=== PATIENT | female | born 1955 | race Caucasian/White ===

== ENCOUNTER → 2018-03-19 16:30 | Outpatient (REF) | payer OTHER, SELFPAY | LOC: LAB 16:30 | PROVIDERS: Visit Provider Nurse Practitioner Obstetrics & Gynecology | DX: N39.0 Urinary tract infection, site not specified (principal) | CPT/HCPCS: 87086; 87088; 87186 ==

== ENCOUNTER 2018-12-25 12:28 | Outpatient (CLI) | payer OTHER, SELFPAY ==
[2018-12-25 12:44] VITALS: BMI 24.3
== END 2018-12-25 13:03 | disposition home or self-care (01) ==
PROVIDERS: PCP Family Medicine; Visit Provider Nurse Practitioner Family
DX: Z23 Encounter for immunization (principal)
CPT/HCPCS: G0463; 90471; 90632; 99201

== ENCOUNTER → 2019-02-26 09:10 | Outpatient (CLI) | payer OTHER, SELFPAY ==
--- NOTE | 2019-02-26 09:12 | MM_ITS ---
PROCEDURE: MM DIG SCREENING MAMM BI W/CAD CLINICAL INDICATION: Routine Screening Mammogram 63-year-old but no hormones. No new complaints. Noncontributory family history. COMPARISON: DMDXUR DIG MAMM-DX UNI-RT from 08/06/2013 DMSB DIG MAMM-SCREEN SENAIT from 01/20/2014 DMSB DIG MAMM-SCREEN SENAIT from 02/03/2015 DMSB DIG MAMM-SCREEN SENAIT from 02/13/2016 DMSB DIG MAMM-SCREEN SENAIT W/CAD from 03/11/2017 TECHNIQUE: Standard CC and MLO images were obtained. R2 CAD reviewed. Additional axillary CC view right breast included FINDINGS: [id number] residual breast density. No dominant or new suspicious mass. No suspicious calcifications Right breast. No new areas of significant concern. Right breast again noted a stable asymmetric small focal area of density deep breast unchanged since studies dating back to 2013 Left breast but no significant new findings but IMPRESSION: Stable bilateral mammogram. No significant appearing new findings either breast Bilateral follow-up 1 year recommended BI-RAD Category: 1 Negative FOLLOW-UP: 1YR 1 Year Follow-up (A letter has been sent to the patient regarding results of the study.) Dictated by: Miguel Angel Farris MD 02/27/2019 09:55 Signed by: <Electronically signed by Miguel Angel Farris MD in [place]> 02/27/2019 09:55
== END ==
PROVIDERS: PCP Family Medicine; Visit Provider Nurse Practitioner Obstetrics & Gynecology
DX: Z12.31 Encounter for screening mammogram for malignant neoplasm of breast (principal)
CPT/HCPCS: 77067

== ENCOUNTER → 2019-02-27 08:48 | Outpatient (CLI) | payer OTHER, SELFPAY ==
[2019-02-27 09:05] LABS: Basophils % 0.6 % (0.1-2.0); Eosinophils # 0.2 K/mm3 (0.0-0.4); Eosinophils % 2.8 % (0.1-12.0); Hematocrit 40.3 % (37.0-47.0); Hemoglobin 12.8 g/dL (12.2-16.2); Lymphocytes # 1.9 K/mm3 (0.7-4.5); Lymphocytes % 35.5 % (10-50); Mean Corpuscular HGB Conc 31.7 g/dL (31.8-35.4); Mean Corpuscular Hemoglobin 27.2 pg (27.0-31.2); Mean Corpuscular Volume 85.7 fl (81-99); Mean Platelet Volume 7.7 fl (7.4-10.4); Monocytes # 0.4 K/mm3 (0.1-1.0); Monocytes % 7.7 % (1.7-9.3); Neutrophils # 2.9 K/mm3 (1.8-7.8); Neutrophils % 53.5 % (37.0-80.0); Platelet Count 211 K/mm3 (142-424); Red Blood Count 4.71 M/mm3 (4.20-5.40); Red Cell Distribution Width 12.9 % (11.5-17.5); White Blood Count 5.4 K/mm3 (4.8-10.8)
[2019-02-27 10:33] LABS: Alanine Aminotransferase 23 U/L (12-78); Albumin Level 3.2 gm/dL (3.4-5.0); Albumin/Globulin Ratio 0.9 (1.1-1.8); Alkaline Phosphatase 83 U/L (46-116); Anion Gap 10.7 mEq/L (5-15); Aspartate Amino Transferase 12 U/L (15-37); Bilirubin,Total 0.2 mg/dL (0.2-1.0); Blood Urea Nitrogen 21 mg/dL (7-18); Calcium 8.6 mg/dL (8.5-10.1); Carbon Dioxide 29 mmol/L (21.0-32.0); Chloride 107 mmol/L (98-107); Chol/HDL Ratio 3.9 (1-3.5); Cholesterol 233 mg/dL (140-200); Creatinine,Serum 0.81 mg/dL (0.55-1.02); Estimated Glomerular Filt Rate 71 ml/min (>60); GFR (African American) 86 ML/MIN (>60); Globulin 3.7 gm/dl (1.3-3.2); Glucose 95 mg/dL (74-106); HDL Cholesterol 60 mg/dL (29-89); LDL Cholesterol 162 mg/dL (0-130); Potassium 4.7 mmoL/L (3.5-5.1); Sodium 142 mmol/L (136-145); Total Protein,Serum 6.9 gm/dL (6.4-8.2); Triglycerides 55 mg/dL (30-200); VLDL Cholesterol 11 mg/dL (0-40)
== END ==
PROVIDERS: Visit Provider Nurse Practitioner Obstetrics & Gynecology
DX: Z01.419 Encounter for gynecological examination (general) (routine) without abnormal findings (principal)
CPT/HCPCS: 36415; 80053; 80061; 85025

== ENCOUNTER → 2020-04-22 10:45 | Outpatient (CLI) | payer MEDICARE, SELFPAY ==
--- NOTE | 2020-04-22 10:49 | MM_ITS ---
PROCEDURE: MM DIG SCREENING MAMM BI W/CAD Digital Breast Tomosynthesis Included CLINICAL INDICATION: SCREENING There is no personal or family history of breast cancer. COMPARISON: MG DMSB DIG MAMM-SCREEN SENAIT from 02/13/2016 MG DMSB DIG MAMM-SCREEN SENAIT W/CAD from 03/11/2017 MG MM DIG SCREENING MAMM BI W/CAD from 02/26/2019 TECHNIQUE: Standard CC and MLO images and 3D Tomosynthesis was obtained. R2 CAD reviewed. FINDINGS: Scattered fibroglandular densities are seen throughout both breasts. There is a stable asymmetric density central portion right breast only definitely seen on the MLO view and likely a summation shadow there is no suspicious lesion and no suspicious microcalcifications. IMPRESSION: Fibrofatty parenchyma with no suspicious lesions seen BI-RAD Category: 1 Negative FOLLOW-UP: 1YR 1 Year Follow-up (A letter has been sent to the patient regarding results of the study.) Dictated by: Dr. Cole Raya MD 04/26/2020 19:37 Dr. Cole Raya MD in [place] 04/26/2020 19:37
== END ==
PROVIDERS: PCP Family Medicine; Visit Provider Nurse Practitioner Obstetrics & Gynecology
DX: Z12.31 Encounter for screening mammogram for malignant neoplasm of breast (principal)
CPT/HCPCS: 77063; 77067

== ENCOUNTER → 2020-11-19 08:07 | Outpatient (CLI) | payer MEDICARE, SELFPAY ==
[2020-11-19 08:22] LABS: Basophils # 0.1 K/mm3 (0-0.2); Basophils % 0.9 % (0.1-2.0); Eosinophils # 0.1 K/mm3 (0.0-0.4); Hematocrit 40.5 % (37.0-47.0); Hemoglobin 12.6 g/dL (12.2-16.2); Lymphocytes # 1.6 K/mm3 (0.7-4.5); Lymphocytes % 27.9 % (10-50); Mean Corpuscular HGB Conc 31.1 g/dL (31.8-35.4); Mean Corpuscular Hemoglobin 26.4 pg (27.0-31.2); Mean Platelet Volume 8.2 fl (7.4-10.4); Monocytes # 0.4 K/mm3 (0.1-1.0); Monocytes % 6.7 % (1.7-9.3); Neutrophils # 3.6 K/mm3 (1.8-7.8); Neutrophils % 62.6 % (37.0-80.0); Platelet Count 212 K/mm3 (142-424); Red Blood Count 4.77 M/mm3 (4.20-5.40); Red Cell Distribution Width 12.8 % (11.5-17.5); White Blood Count 5.7 K/mm3 (4.8-10.8)
[2020-11-19 08:37] LABS: Creatinine,Urine Random 90 mg/dL (Not Estab.)
[2020-11-19 08:38] LABS: Microalbumin/Creatinine Ratio 8.4
[2020-11-19 09:00] LABS: Alanine Aminotransferase 16 U/L (12-78); Albumin Level 3.9 g/dl (3.5-5.0); Albumin/Globulin Ratio 1.4 (1.1-1.8); Alkaline Phosphatase 75 U/L (38-126); Anion Gap 6.9 mEq/L (5-15); Aspartate Amino Transferase 20 U/L (14-36); Bilirubin,Total 0.4 mg/dl (0.2-1.3); Blood Urea Nitrogen 16 mg/dl (7-17); Calcium 9.1 mg/dl (8.4-10.2); Carbon Dioxide 28 mmol/L (22.0-30.0); Chloride 110 mmol/L (98-107); Chol/HDL Ratio 4.1 (1-3.5); Cholesterol 230 mg/dl (140-200); Estimated Glomerular Filt Rate 84 ml/min (>60); GFR (African American) 101 ML/MIN (>60); Globulin 2.8 g/dL (1.3-3.2); Glucose 100 mg/dl (74-100); HDL Cholesterol 56 mg/dl (40-60); Potassium 4.9 mmoL/L (3.5-5.1); Sodium 140 mmol/L (136-145); Total Protein,Serum 6.7 g/dl (6.3-8.2); Triglycerides 73 mg/dl (30-150); Uric Acid 5.4 mg/dl (2.5-6.2); VLDL Cholesterol 15 mg/dL (0-40)
[2020-11-19 09:11] LABS: Direct LDL Cholesterol 129.25 mg/dL (100-129)
[2020-11-19 09:31] LABS: Thyroid Stimulating Hormone 0.51 uIU/mL (0.465-4.68)
== END ==
PROVIDERS: Visit Provider Family Medicine
DX: I10 Essential (primary) hypertension (principal); E78.00 Pure hypercholesterolemia, unspecified
CPT/HCPCS: 36415; 80053; 80061; 82043; 82570; 84443; 84550; 85025

== ENCOUNTER → 2021-05-03 10:07 | Outpatient (CLI) | payer MEDICARE, SELFPAY ==
--- NOTE | 2021-05-03 10:07 | MM_ITS ---
PROCEDURE: MM DIG SCREENING MAMM BI W/CAD Digital Breast Tomosynthesis Included CLINICAL INDICATION: screenibng xmg There is no personal or family history of breast cancer. COMPARISON: MG DMSB DIG MAMM-SCREEN SENAIT W/CAD from 03/11/2017 MG MM DIG SCREENING MAMM BI W/CAD from 02/26/2019 MG MM DIG SCREENING MAMM BI W/CAD from 04/22/2020 TECHNIQUE: Standard CC and MLO images and 3D Tomosynthesis was obtained. R2 CAD reviewed. FINDINGS: Moderate diffuse fibroglandular densities are seen throughout both breasts. There are no CAD markings. There is a stable benign-appearing asymmetric density right breast there is no new or suspicious lesion in either breast and no suspicious microcalcifications. IMPRESSION: Moderate diffuse breast density with no suspicious lesions seen BI-RAD Category: 1 Negative FOLLOW-UP: 1YR 1 Year Follow-up (A letter has been sent to the patient regarding results of the study.) Dictated by: Dr. Cole Raya MD 05/09/2021 15:09 Dr. Cole Raya MD in [place] 05/09/2021 15:09
== END ==
PROVIDERS: PCP Family Medicine; Visit Provider Nurse Practitioner Obstetrics & Gynecology
DX: Z12.31 Encounter for screening mammogram for malignant neoplasm of breast (principal)
CPT/HCPCS: 77063; 77067

== ENCOUNTER → 2021-06-12 08:28 | Outpatient (CLI) | payer MEDICARE, SELFPAY ==
[2021-06-12 09:34] LABS: Chloride 106 mmol/L (98-107)
[2021-06-12 09:35] LABS: Sodium 141 mmol/L (136-145)
[2021-06-12 09:37] LABS: Alanine Aminotransferase 25 U/L (12-78); Alkaline Phosphatase 84 U/L (38-126); Aspartate Amino Transferase 29 U/L (14-36); Bilirubin,Total 0.4 mg/dl (0.2-1.3); Blood Urea Nitrogen 18 mg/dl (7-17); Carbon Dioxide 28 mmol/L (22.0-30.0); Cholesterol 173 mg/dl (140-200); Estimated Glomerular Filt Rate 83 ml/min (>60); GFR (African American) 101 ML/MIN (>60); Triglycerides 58 mg/dl (30-150); VLDL Cholesterol 12 mg/dL (0-40)
[2021-06-12 09:38] LABS: Albumin Level 4.1 g/dl (3.5-5.0); Albumin/Globulin Ratio 1.5 (1.1-1.8); Calcium 9.8 mg/dl (8.4-10.2); Chol/HDL Ratio 2.5 (1-3.5); Globulin 2.8 g/dL (1.3-3.2); Glucose 107 mg/dl (74-100); HDL Cholesterol 68 mg/dl (40-60); Total Protein,Serum 6.9 g/dl (6.3-8.2)
== END ==
PROVIDERS: Visit Provider Family Medicine
DX: E78.00 Pure hypercholesterolemia, unspecified (principal)
CPT/HCPCS: 36415; 80053; 80061

== ENCOUNTER → 2021-07-06 08:17 | Outpatient (CLI) | payer MEDICARE, SELFPAY ==
[2021-07-06 09:48] LABS: Blood Urea Nitrogen 19 mg/dl (7-17); Estimated Glomerular Filt Rate 83 ml/min (>60); GFR (African American) 101 ML/MIN (>60)
== END ==
PROVIDERS: Visit Provider Otolaryngology
DX: Z01.812 Encounter for preprocedural laboratory examination (principal)
CPT/HCPCS: 36415; 82565; 84520

== ENCOUNTER → 2021-07-10 10:25 | Outpatient (CLI) | payer MEDICARE, OTHER, SELFPAY ==
--- NOTE | 2021-07-10 10:25 | CT_ITS ---
PROCEDURE: CT SOFT TISSUE NECK W CON CLINICAL HISTORY: left mastoid/neck pain COMPARISON: No exams were available for comparison TECHNIQUE: Oral Contrast: None IV Contrast: 75 mL Isovue 370 Axial images obtained with sagittal and coronal reformats. All CT scans at the facility use one or more dose reduction, viz: automated exposure control, ma/kV adjustment per patient size (including targeted exams where dose is matched to indication, i.e. head), or iterative reconstruction technique. FINDINGS: Significant artifact is present from the patient's dental work. This obscures the base of the tongue area. No neck mass evident. There is scattered small nodes but no dominant adenopathy. No abnormal fluid collections. The parotids are somewhat obscured by the dental artifact. Submandibular glands have an unremarkable appearance. The lower oropharynx is also obscured by artifact. The hypopharynx, epiglottis, laryngeal region, and subglottic region are unremarkable. Vague small area of decreased attenuation is present in the mid aspect of the left thyroid gland at approximately 8 x 4 mm and could be due to small nodule. Lung apices are unremarkable. Mild degenerative disc disease C6-C7. No mastoid effusion or mass. No bony destructive process. There is mild mucosal thickening of the ethmoid sinuses on the left and the left maxillary sinus. No air-fluid level. There is moderate to severe TMJ arthropathy on both sides. IMPRESSION: 1. No acute finding. 2. Significant artifact from the patient's dental work. 3. 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 Mild paranasal sinus disease 5. Other nonacute findings as described above. Dictated by: Mick Hill MD 07/11/2021 09:00 Mick Hill MD in [place] 07/11/2021 09:00
== END ==
PROVIDERS: PCP Family Medicine; Visit Provider Otolaryngology
DX: H92.09 Otalgia, unspecified ear (principal); S16.1XXA Strain of muscle, fascia and tendon at neck level, initial encounter
CPT/HCPCS: 70491; Q9967

== ENCOUNTER → 2022-05-15 09:39 | Outpatient (CLI) | payer MEDICARE, OTHER, SELFPAY ==
--- NOTE | 2022-05-15 09:39 | MM_ITS ---
PROCEDURE INFORMATION: Exam: MG Bilateral Screening 3D Mammography Exam date and time: 05/15/2022 9:45 AM Age: 66 years old Clinical indication: Screening mammogram. TECHNIQUE: Imaging protocol: Bilateral Screening tomosynthesis and 2D mammography including computer-aided detection (CAD) when performed. COMPARISON: 1. MG MM DIG SCREENING MAMM BI W/CAD 05/03/2021 10:04 AM 2. MG MM DIG SCREENING MAMM BI W/CAD 04/22/2020 10:53 AM 3. MG MM DIG SCREENING MAMM BI W/CAD 02/26/2019 9:42 AM 4. MG DMSB DIG MAMM-SCREEN SENAIT W/CAD 03/11/2017 10:24 AM FINDINGS: MAMMOGRAPHY: Breast composition: There are scattered areas of fibroglandular density. Mass: Stable benign-appearing subcentimeter nodules are present in the right breast. No new or morphologically suspicious nodule has developed to suggest malignancy. Architectural distortion: No new or suspicious architectural distortion. Calcifications: No new or suspicious calcifications are present Asymmetric density: No new or suspicious asymmetric density is present Skin thickening: None. Axillary adenopathy: None. IMPRESSION: No mammographic evidence of malignancy. Recommend annual screening mammography unless otherwise clinically indicated. ASSESSMENT: BI-RADS category 2: Benign
== END ==
PROVIDERS: PCP Family Medicine; Visit Provider Nurse Practitioner Obstetrics & Gynecology
DX: Z12.31 Encounter for screening mammogram for malignant neoplasm of breast (principal)
CPT/HCPCS: 77063; 77067

== ENCOUNTER → 2023-05-24 10:10 | Outpatient (CLI) | payer MEDICARE, OTHER, SELFPAY ==
--- NOTE | 2023-05-24 10:10 | MM_ITS ---
PROCEDURE INFORMATION: Exam: MG Bilateral Screening 3D Mammography Exam date and time: 05/24/2023 10:12 AM Age: 68 years old Clinical indication: Screening. No family history of breast cancer. TECHNIQUE: Imaging protocol: Bilateral Screening tomosynthesis and 2D mammography including computer-aided detection (CAD) when performed. COMPARISON: 1. MG MM DIG SCREENING MAMM BI W/CAD 05/15/2022 9:45 AM 2. MG MM DIG SCREENING MAMM BI W/CAD 05/03/2021 10:04 AM 3. MG MM DIG SCREENING MAMM BI W/CAD 04/22/2020 10:53 AM 4. MG MM DIG SCREENING MAMM BI W/CAD 02/26/2019 9:42 AM FINDINGS: MAMMOGRAPHY: Breast composition: There are scattered areas of fibroglandular density. Mass: None. Architectural distortion: None. Calcifications: No suspicious calcifications. Asymmetric density: No developing asymmetry. Skin thickening: None. Axillary adenopathy: None. IMPRESSION: No mammographic evidence of malignancy. Annual screening is recommended unless otherwise clinically indicated. ASSESSMENT: BI-RADS Category 1: Negative
== END ==
PROVIDERS: PCP Family Medicine; Visit Provider Nurse Practitioner Obstetrics & Gynecology
DX: Z12.31 Encounter for screening mammogram for malignant neoplasm of breast (principal)
CPT/HCPCS: 77063; 77067

== ENCOUNTER 2023-08-05 10:38 | Outpatient (CLI) | payer SELFPAY ==
--- NOTE | 2023-08-05 10:45 | CT_ITS ---
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 A noncontrast coronary calcium scan was performed. A CT attenuation threshold of 130 Hounsfield units (HU) was used for the detection of calcium in contiguous voxels of 1 sq mm in area to be counted as individual lesions. A tube voltage of 120 KVp was used. The patient received no medications prior to the coronary calcium CT. Image Reconstruction Transaxial images were reconstructed at 0.67 mm slide thickness. Data was reviewed interactively on an advanced workstation capable of 2 and 3-dimensional displays in all conventional reconstruction formats, including multiplanar reformations, maximum intensity projections, curved multiplanar reformations, and volume rendered reconstructions. When applicable, selected routine images describing the relevant coronary anatomy and pathology were saved and sent to PACS. Complications None Technical Quality Overall image quality was good. Total DLP (Dose-Length Product) is 179.9 mGy-cm. The reported value represents the total of one or more individual components during the CT acquisition of this date and at this time, and as such, the same value may appear in more than one CT report depending on the interpreting/reporting physicians. COMPARISON None FINDINGS CT Coronary Calcium Scoring LMA (Left Main Artery) = 0 LAD (Left Anterior Descending) = 0 LCX (Left Coronary Circumflex) = 0 RCA (Right Coronary Artery) = 0 Total Calcium Score = 0 using the AJ-130 method. There is mild calcification in the ascending and descending thoracic aorta, but no calcification in the aortic valve, mitral annulus or mitral valve, pericardium, or myocardium. IMPRESSION -Coronary artery calcification is absent. -Total Calcium Score (Agatston Score) = 0 using the AJ-130 method. -Mild calcification in the ascending and descending thoracic aorta is incidentally noted. The interpretation of the calcium heart score is based on the following continuum*: 0 = no calcified plaque detected (risk of coronary artery disease is very low ??? less than 5%) 1-10 = calcium detected in extremely minimal levels (risk of coronary diseases is still low ??? less than 10%) 11-100 = mild levels of plaque detected with certainty (mild or minimal narrowing of heart arteries is likely) 101-400 = definite,at least moderate levels of plaque detected (relatively high risk of a heart attack within 3-5 years) >401-999 = extensive levels of plaque detected (high risk of heart attack, high levels of vascular disease are present, high likelihood of at least one significant coronary narrowing) *The calcium heart score quantifies the burden of coronary calcification/plaque in the coronary arteries. The calcium heart score does not evaluate the presence or the burden of non-calcified (i.e. soft) plaque. The coronary and cardiac findings of this Coronary Calcium CT were reviewed, reported, and signed by Cm Meier MD (Director Of Collections). Conclusion Electronically signed by : Princess Meier MD 08/05/2023 13:14:48
== END 2023-08-05 23:59 ==
LOC: RAD 10:39
PROVIDERS: PCP Family Medicine; Visit Provider Family Medicine
DX: Z13.6 Encounter for screening for cardiovascular disorders (principal)
CPT/HCPCS: 75571

== ENCOUNTER 2023-10-14 10:37 | Outpatient (CLI) | payer MEDICARE, OTHER, SELFPAY ==
--- NOTE | 2023-10-14 10:39 | CA_ITS ---
APPROVED REPORT EXAM: Comprehensive 2D, Doppler, and color-flow Echocardiogram Stapler Coil Unit: Zahra Smith RDCS Ht: 5 ft 8 in Wt: 180lbs BSA: 1.95 BP: 148/90 mmHg Indications: SOA M-Mode Dimensions RVDd 1.60 cm (0.9-2.6) LA Diam 3.28 cm (1.9-4.0) LVDd 4.94 cm (3.5-5.7) LVDs 3.60 cm (3.5-5.7) IVSd 0.82 cm (0.6-1.1) PWd 0.78 cm (0.6-1.1) EF (Teich) 52.70% FS 27.10% EDV (Teich) 115.00 mL ESV (Teich) 54.40 mL LV Diastology E Decel Time 273 (160-240 msec) E/A Ratio 1.0 Aortic Valve AI PHT 451.00 ms Mitral Valve MV E Max Greg. 75.0 (40-130 cm/s) MV A Velocity 76.0 (40-130 cm/s) E/A Ratio 0.99 MV PHT 80.0 ms Tricuspid Valve TR P. Velocity 230.00 cm/s RAP Estimate 10.00 mmHg RVSP 31.20 mmHg Left Ventricle The left ventricle is normal size. The left ventricular systolic function is normal. The left ventricular ejection fraction is within the normal range. There is normal left ventricular wall thickness. There is normal LV segmental wall motion. The left ventricular diastolic function is normal. LVEF is 55%. Right Ventricle Right ventricle is mildly dilated. The right ventricular systolic function is normal. Atria Left atrium is mildly dilated. Right atrium is mildly dilated. There is no Doppler evidence of interatrial shunt. Aortic Valve The aortic valve is mildly thickened. Mild aortic regurgitation. There is no aortic valvular stenosis. Mitral Valve The mitral valve leaflets are mildly thickened. No evidence of mitral valve stenosis. Trace mitral regurgitation. Tricuspid Valve The tricuspid valve leaflets are thin and pliable. Mild tricuspid regurgitation. RVSP is 20-25 mmHg. Pulmonic Valve The pulmonary valve is normal in structure. Trace pulmonic regurgitation. Great Vessels The aortic root is normal in size. The ascending aorta is normal in size. IVC is normal in size and collapses >50% with inspiration. Pericardium There is no pericardial effusion. Other Information Study Quality: Adequate Conclusion Normal biventricular systolic function. Mild RV dilation. Mild biatrial dilation. Mild AI. Mild TR. Electronically signed by : Princess Meier MD 10/15/2023 10:37:27
== END 2023-10-14 23:59 ==
LOC: RT 10:37
PROVIDERS: PCP Family Medicine; Visit Provider Family Medicine
DX: R06.09 Other forms of dyspnea (principal); R06.02 Shortness of breath
CPT/HCPCS: 93306

== ENCOUNTER 2023-11-21 12:20 | Outpatient (CLI) | payer MEDICARE, OTHER, SELFPAY | END 2023-11-21 23:59 | disposition home or self-care (01) | LOC: LAB.DROPOF 11-22 12:21 | PROVIDERS: PCP Nurse Practitioner Obstetrics & Gynecology; Visit Provider Nurse Practitioner Obstetrics & Gynecology | DX: N39.0 Urinary tract infection, site not specified (principal); B96.1 Klebsiella pneumoniae [K. pneumoniae] as the cause of diseases classified elsewhere | CPT/HCPCS: 87086; 87088; 87186 ==

== ENCOUNTER 2024-06-15 08:07 | Outpatient (CLI) | payer MEDICARE, OTHER, SELFPAY ==
--- NOTE | 2024-06-15 08:08 | MM_ITS ---
PROCEDURE INFORMATION: Exam: MG Bilateral Screening 3D Mammography Exam date and time: 06/15/2024 8:01 AM Age: 69 years old Clinical indication: Screening. No family history of breast cancer. TECHNIQUE: Imaging protocol: Bilateral Screening tomosynthesis and 2D mammography including computer-aided detection (CAD) when performed. COMPARISON: 1. MG MM DIG SCREENING MAMM BI W/CAD 05/24/2023 10:12 AM 2. MG MM DIG SCREENING MAMM BI W/CAD 05/15/2022 9:45 AM 3. MG MM DIG SCREENING MAMM BI W/CAD 05/03/2021 10:04 AM 4. MG MM DIG SCREENING MAMM BI W/CAD 04/22/2020 10:53 AM FINDINGS: MAMMOGRAPHY: Breast composition: There are scattered areas of fibroglandular density. Mass: None. Architectural distortion: None. Calcifications: No suspicious calcifications. Asymmetric density: No developing asymmetry. Skin thickening: None. Axillary adenopathy: None. IMPRESSION: No mammographic evidence of malignancy. Annual screening is recommended unless otherwise clinically indicated. ASSESSMENT: BI-RADS Category 1: Negative.
== END 2024-06-15 23:59 | disposition home or self-care (01) ==
LOC: RAD 08:08
PROVIDERS: PCP Family Medicine; Visit Provider Nurse Practitioner Obstetrics & Gynecology
DX: Z12.31 Encounter for screening mammogram for malignant neoplasm of breast (principal)
CPT/HCPCS: 77063; 77067

== ENCOUNTER 2024-10-09 08:44 | Outpatient (CLI) | payer MEDICARE, OTHER, SELFPAY ==
--- NOTE | 2024-10-09 08:47 | XR_ITS ---
FINAL REPORT CLINICAL HISTORY: SCREENING FINDINGS: Using L1-4, the bone mineral density of the spine is 0.830 g/cm2, corresponding to T-score of -2.0 with a Z-score of 0.2. This is within the range of osteopenia. Using the left hip, the bone mineral density of the femoral neck is 0.778 g/cm2, corresponding to a T-score of -0.6 with a Z-score of 1.2. This is within the normal range. Using the right hip, the bone mineral density of the femoral neck is 0.733 g/cm2, corresponding to a T-score of -1.0 with a Z-score of 0.8. This is within the normal range. FRAX 10 year fracture risk is 21% for a hip fracture and 3.2% for a major osteoporotic fracture. IMPRESSION: Bone mineral density of the lumbar spine is within the osteopenic range. Bone mineral density of the bilateral femoral necks is within the normal range. NOTE: T-score: Standard deviation compared with peak bone mass of young adult mean. *Following the recommendations of the International Society of Bone densitometry, classification of hip BMD is based on the lower of two T-scores; total hip or femoral neck. Reviewed, Interpreted and Dictated by Francisco Juárez MD Transcribed by Cheri Cleaning Authenticated and [facility]
== END 2024-10-09 23:59 | disposition home or self-care (01) ==
LOC: RAD 08:45
PROVIDERS: PCP Family Medicine; Visit Provider Family Medicine
DX: Z13.820 Encounter for screening for osteoporosis (principal); M85.88 Other specified disorders of bone density and structure, other site
CPT/HCPCS: 77080

== ENCOUNTER 2025-06-29 10:07 | Outpatient (CLI) | payer MEDICARE, OTHER, SELFPAY ==
--- OUTSIDE RECORDS SUMMARY | 2024-04-02 04:15 | XMS_ITS ---
Author Organization [facility] Address [address] [place] [id number] Care Team Providers Care Biometric Technician Name Role Phone Yasmani Gilbert Unavailable [phone] Zak Floyd Unavailable [phone] Allergies No Known Allergies Results Component Value Reference Range Notes Urinalysis - Inhouse Reviewed date:04/03/2024 12:47:29 PM Interpretation:Normal Performing Lab: Notes/Report: Normal Color/Clarity yellow/clear Leuk neg Nitrite neg Urobili 3.2 Protein neg pH 7.0 Blood neg Sp. Gr. 1.020 Ketone neg Bili neg Gluc neg P-Comprehensive Metabolic Pa prieto (CMP) Reviewed date:04/03/2024 12:47:29 PM Interpretation:satisfactory Performing Lab: Notes/Report: Test performed by [facility] [employer] [address] [place] [address] , [address], [place] [address] Lee Bryson MD, Tool And Die Rep[employer]r CLIA: [id number] Sodium 140 135-145 mmol/L Potassium 4.2 3.5-5.3 mmol/L Chloride 105 97-108 mmol/L CO2 25 22-32 mmol/L Glucose 100 65-99 mg/dL BUN 17 8-23 mg/dL Creatinine 0.81 0.50-1.00 mg/dL Calcium 9.2 8.6-10.4 mg/dL eGFR by Creatinine 78 >59 mL/min/1.73m2 Protein 6.4 6.0-8.3 g/dL Albumin 4.0 3.5-5.3 g/dL Alkaline Phosphatase 89 35-121 IU/L ALT (SGPT) 20 <5-47 IU/L AST (SGOT) 19 <5-40 IU/L Bilirubin, Total 0.4 <0.2-1.2 mg/dL A/G Ratio 1.7 1.1-2.5 P-Lipid Panel Reviewed date:04/03/2024 12:47:29 PM Interpretation:Normal Performing Lab: Notes/Report: Test performed by [facility], [address] , [address], [place] [address] Lee Bryson MD, Tool And Die Repairer CLIA: [id number] Cholesterol 157 <200 mg/dL Triglycerides 80 <150 mg/dL HDL Cholesterol 53 >39 mg/dL Cholesterol / HDL Ratio 2.96 0.00-4.44 Ratio Non-HDL Cholesterol 104 <130 mg/dL LDL Cholesterol (Calculation) 88 <130 mg/dL LDL Cholesterol Levels* Less than 100 mg/dL Optimal 100 to 129 mg/dL Near Optimal/ Above Optimal 130 to 159 mg/dL Borderline High 160 to 189 mg/dL High 190 mg/dL and above Very High * Categories as recommended by the 2004 ATPIII guidelines LDL/HDL Ratio 1.7 <3.3 Ratio LDL Cholesterol Patient History Test Date: 04/02/2024 LDL Results: 88 Units: mg/dL % Change: - P-TSH reflex to FT4 Reviewed date:04/03/2024 12:47:29 PM Interpretation:Normal Performing Lab: Notes/Report: Test performed by [facility] [address] [place] [address] , [address], [place] [address] Lee Bryson MD, Tool And Die Repairer CLIA: [id number] TSH reflex to FT4 4.53 0.43-5.25 mU/L P-Microalbumin/Creatinine, R andom Urine Sample Reviewed date:04/03/2024 12:47:29 PM Interpretation:Normal Performing Lab: Notes/Report: Test performed by [facility] [address] , [address], [place] [address] Lee Bryson MD, Tool And Die Repairer CLIA: [id number] Albumin/Creatinine Ratio, Urine See Comment 0-30 ug/mg Unable to calculate Urine Albumin/Creatinine Ratio when urine creatinine or urine albumin fall outside established reportable range. Microalbumin, Urine, Random <0.3 Creatinine, Urine 45.8 REASON FOR VISIT 6 month checkup Medications Medication SIG (Take, Route, Frequency, Duration) Notes Start Date End Date Status Irbesartan-hydroCHLOROthiaz hayde 300-12.5 MG 1 tablet Orally Once a day; Duration: 90 days Active Atorvastatin Calcium 20 MG 1 tab(s) oral ly once a day; Duration: 90 days Active Immunizations Vaccine Route Administration Date Status Comme nts Fluzone High Dose (65yr and older) IM Intramuscular 04/02/2024 Administered Vital Signs Blood pressure systolic 130 mm Hg 04/02/20 24 Blood pressure diastolic 80 mm Hg 024 Heart Rate 79 /min 04/02/2024 Height 68 in 04/02/2024 Weight 182.4 lbs 04/02/2024 BMI 27.73 kg/m2 04/02/2024 Encounters Encounter Location Date Provider Diagnosis [facility] [address] [place], [place] [id number] 04/02/2024 Zak Feltonberry Essential hypertensi on I10 ; Pure hypercholesterolemia E78.00 ; Recent urinary tract infection Z87.440 and Encounter for immunization Z23 Assessments Encounter Date Diagnosis (ICD Code) Assessment Notes Treatment Notes Treatment Clinical Notes Section Notes 04/02/2024 Essential hypertensi on (ICD-10 - I10) 04/02/2024 Pure hypercholesterolemia (ICD-10 - E78.00) 04/02/2024 Recent urinary tract infection (ICD-10 - Z87.440) 04/02/2024 Encounter for immunization (ICD-10 - Z23) Plan Of Treatment Medication Medication Name Sig Start Date Stop Date Notes Irbesartan-hydroCHLOROthiazi de 300-12.5 MG 1 tablet Orally Once a day; Duration: 90 days Atorvastatin Calcium 20 MG 1 tab(s) oral ly once a day; Duration: 90 days Next Appt Details Follow Up: 6 Months, Reason: Provider Name:Zak Corral , 09/29/2025 09:00:00 AM, [address], [address], [place], [place], [id number], Progress Notes * Evelyn TORRESDOB:1955 (70 yo F)Acc No.[id number]:04/02/2024 Progress Notes Patient: Sudha WILLETT Evelyn Provider: Leila Floyd M.D. :1955 A ge:68 Y S ex:Female Date:04/02/2024 Address:[address], [place], [id number] Subjective: * Chief Complaints: * 1 . 6 month checkup. * HPI: C ardiology: 68 year old female presents with c/o Blood Pressure Elevated?Pt here for 6 mo f/u on hypertension, states she is doing well and does not have any concerns. Pt?would like f dee shot today. c/o Hyperlipidemia P t is fasting today. * ROS: D ERMATOLOGY: no R bernice. n o H asmita. G ASTROENTEROLOGY: no N ausea. n o V omiting. U ROLOGY: no D ifficulty urinating. n o B lood in urine. * Medical History: H ypertension, Hyperlipidemia. * Surgical History: T ubal Ligation , Bladder Sling/ PHAN, BSO 2005, Colonoscopy 2009. * Hospitalization/Major Diagno stic Procedure: H ysterectomy 2005. * Family History: F ather: , pneumonia. M other: , [place] at age 85. S iblings: alive. Sudha buckner: alive. 1 brother(s) , 4 sister(s) - healthy. 1 son(s) , 1 daughter(s) - healthy. .? * Social History: C URRENT TOBACCO USE S moking Status: Patient does NOT smoke. C affeine: no. Home smoke detector use: yes. * Medications: T aking Irbesartan-hydroCHLOROthiazide 300-12.5 MG Tablet 1 tablet Orally Once a day , Taking Atorvastatin Calcium 20 MG Tablet 1 tab(s) orally once a day , Discontinued valACYclovir HCl 1 GM Tablet 2 tablet Orally Two times a day , Medication List reviewed and reconciled with the patient * Allergies: N .K.D.A. Objective: * Vitals: W t:182.4, Temp:97.8, BP:130/80, HR:79, Nurse:dov, Ht: 68, BMI:27.73. * Examination: C ardiology: General Appearance: p leasant, NAD. H EENT: u nremarkable. H eart sounds: R RR, normal S1, S2. L ungs: c lear, no rales or wheezes.?Extremities: n o leg edema. Assessment: * Assessment: 1. E ssential hypertension - I10 (Primary) 2 . P ure hypercholesterolemia - E78.00 3 . R ecent urinary tract infection - Z87.440 4 . E ncounter for immunization - Z23 Plan: * Treatment: Value Reference Range A /G Ratio 1.7 1.1-2.5 - * A lbumin 4.0 3.5-5.3 - g/dL * A lkaline Phosphatase 89 35-121 - IU/L * A LT (SGPT) 20 <5-47 - IU/L * A ST (SGOT) 19 <5-40 - IU/L * B ilirubin, Total 0.4 <0.2-1.2 - mg/dL * B UN 17 8-23 - mg/dL * C alcium 9.2 8.6-10.4 - mg/dL * C hloride 105 97-108 - mmol/L * C O2 25 22-32 - mmol/L * C reatinine 0.81 0.50-1.00 - mg/dL * G lucose 100 H 65-99 - mg/dL * P otassium 4.2 3.5-5.3 - mmol/L * S odium 140 135-145 - mmol/L * P rotein 6.4 6.0-8.3 - g/dL * e GFR by Creatinine 78 >59 - mL/min/1.73m2 * Najma Blunt 04/03/2024 11:21:4 7 AM > LM for return Vielka Lainez 04/03/2024 12:47:12 PM > pt informed. ?LAB: P-Microalbumin/Creatinine, Random Urine Sample (Collection Date & Time - 04/02/2024 08:40 AM)?Normal* Value Reference Range A lbumin/Creatinine Ratio, Urine See Comment L 0-30 - ug /mg * C reatinine, Urine 45.8 - mg/dL * M icroalbumin, Urine, Random <0.3 - mg/dL * Najma Blunt 04/03/2024 11:21:4 7 AM > LM for return call Vielka Mei 04/03/2024 12:47:12 PM > pt informed. 2.?Pure hypercholesterolemia? Refill Atorvastatin Calcium Tablet, 20 MG, 1 tab(s), orally, once a day, 90 days, 90 Tablet, Refills 1.?LAB: P-Comprehensive Metabolic Panel (CMP) (Collection Date & Time - 04/02/2024 08:40 AM)?satisfactory* Value Reference Range A /G Ratio 1.7 1.1-2.5 - * A lbumin 4.0 3.5-5.3 - g/dL * A lkaline Phosphatase 89 35-121 - IU/L * A LT (SGPT) 20 <5-47 - IU/L * A ST (SGOT) 19 <5-40 - IU/L * B ilirubin, Total 0.4 <0.2-1.2 - mg/dL * B UN 17 8-23 - mg/dL * C alcium 9.2 8.6-10.4 - mg/dL * C hloride 105 97-108 - mmol/L * C O2 25 22-32 - mmol/L * C reatinine 0.81 0.50-1.00 - mg/dL * G lucose 100 H 65-99 - mg/dL * P otassium 4.2 3.5-5.3 - mmol/L * S odium 140 135-145 - mmol/L * P rotein 6.4 6.0-8.3 - g/dL * e GFR by Creatinine 78 >59 - mL/min/1.73m2 * Najma Blunt 04/03/2024 11:21:4 7 AM > LM for return call Hamida Vielka 04/03/2024 12:47:12 PM > pt informed. ?LAB: P-Lipid Panel (Collection Date & Time - 04/02/2024 08:40 AM)?Normal* Value Reference Range C holesterol / HDL Ratio 2.96 0.00-4.44 - Ratio * C holesterol 157 <200 - mg/dL * H DL Cholesterol 53 >39 - mg/dL * L DL Cholesterol (Calculation) 88 <130 - mg/d L * L DL/HDL Ratio 1.7 <3.3 - Ratio * N on-HDL Cholesterol 104 <130 - mg/dL * T riglycerides 80 <150 - mg/dL * Najma Blunt 04/03/2024 11:21:4 7 AM > LM for return call Hamida Vielka 04/03/2024 12:47:12 PM > pt informed. ?LAB: P-TSH reflex to FT4 (Collection Date & Time - 04/02/2024 08:40 AM)? Normal* Value Reference Range T SH reflex to FT4 4.53 0.43-5.25 - mU/L * Najma Blunt 04/03/2024 11:21:4 7 AM > LM for return call Hamida Vielka 04/03/2024 12:47:12 PM > pt informed. 3.?Recent urinary tract infection?LAB: Urinalysis - Inhouse (Collection Date & Time - 04/02/2024)?Normal* Value Reference Range C olor/Clarity yellow/clear * L euk neg * N itrite neg * U robili 3.2 * P rotein neg * p H 7.0 * B lood neg * S p. Gr. 1.020 * K etone neg * B audie neg * G campbell neg * Luly Garcia 04/02/2024 1:15 :10 PM > Najma Blunt 04/03/2024 11:21:47 AM > LM for return call Vielka Mei 04/03/2024 12:47:12 PM > pt informed. * Immunizations: Fluzone High Dose (65yr and older) : 0.7 mL (Route: Intramuscular) given by Najma Blunt on Right Deltoid (Encounter for immunization) * Procedure Codes: G 2211 Complex e/[place], [address] Urinalysis, no micro * Follow Up: 6 Months * Images: Billing Information: * Visit Code: 25369 Office Visit, Est Pt., Level 4. * Procedure Codes: G2211 Complex e/[place] [address] Urinalysis, no micro. * Electronic signature of Denise Floyd MD on 06/29/2025 at 10:35 AM EST Sign off status: Pending * Provider: Leila Floyd M.D. Date: 0 04/02/2024 Generated for Lorenzo sevilla/Stefanie/eTransmitting on: 1 08/30/2024 10:35 AM EST History and Physical Notes * HPI (History of Present Illness) Category Sub-Category Detail Notes Category Not es Cardiology Blood Pressure Elevated Pt here for 6 mo f/u on hypertension, states she is doing well and does not have any concerns. Pt would like flu shot today Hyperlipidemia Pt is fasting today Examination Category Sub-Category Detail Notes Category Not es Cardiology Lungs: clear, no rales or wheezes HEENT: unremarkable Heart sounds: RRR, normal S1, S2 Extremities: no leg edema General Appearance: pleasant, NAD
--- OUTSIDE RECORDS SUMMARY | 2024-09-29 04:00 | XMS_ITS ---
Author Organization [facility] Address [address] [facility] [address] [facility] [address] [place] [id number] Care Team Providers Care Composition Stone Applicator Name Role Phone Yasmani Gilbert Samson Unavailable [phone] Zak Floyd Unavailable [phone] Allergies No Known Allergies Results Component Value Reference Range Notes DEXA Hip and Spine Reviewed date:10/11/2024 12:10:24 PM Interpretation:osteopenia of L-spine, new diagnosis Performing Lab: Notes/Report: osteopenia of L-spine, new diagnosis Dexa results osteopenia of L-spin e, new diagnosis REASON FOR VISIT 6 mths Medications Medication SIG (Take, Route, Frequency, Duration) Notes Start Date End Date Status Irbesartan-hydroCHLOROthiaz hayde 300-12.5 MG 1 tablet Orally Once a day; Duration: 90 days Active Atorvastatin Calcium 20 MG 1 tablet Oral ly once daily; Duration: 90 days Active Vital Signs Blood pressure systolic 122 mm Hg 09/30/19 25 Blood pressure diastolic 70 mm Hg 025 Heart Rate 104 /min 09/29/2024 Height 68 in 09/29/2024 Weight 179 lbs 09/29/2024 BMI 27.21 kg/m2 09/29/2024 Encounters Encounter Location Date Provider Diagnosis [place] [address] [place] [id number] 09/29/2024 Zak Floyd Essential hypertensi on I10 ; Pure hypercholesterolemia E78.00 ; Colon cancer screening Z12.11 and Osteoporosis screening Z13.820 Assessments Encounter Date Diagnosis (ICD Code) Assessment Notes Treatment Notes Treatment Clinical Notes Section Notes 09/29/2024 Essential hypertensi on (ICD-10 - I10) 09/29/2024 Pure hypercholesterolemia (ICD-10 - E78.00) 09/29/2024 Colon cancer screeni ng (ICD-10 - Z12.11) 09/29/2024 Osteoporosis screeni ng (ICD-10 - Z13.820) Plan Of Treatment Medication Medication Name Sig Start Date Stop Date Notes Irbesartan-hydroCHLOROthiazi de 300-12.5 MG 1 tablet Orally Once a day; Duration: 90 days Atorvastatin Calcium 20 MG 1 tablet Oral ly once daily; Duration: 90 days Pending Test Test Name Order Date colonoscopy 09/29/2024 Next Appt Details Follow Up: 6 Months, Reason: Provider Name:Zak Corral ry, 09/29/2025 09:00:00 AM, [address] [facility] [address], [address] , [place], [place], [id number], Progress Notes * Evelyn TORRESDOB:1955 (70 yo F)Acc No.[id number]:09/29/2024 Progress Notes Patient: Evelyn HARPER Provider: Leila Floyd M.D. :1955 A ge:69 Y S ex:Female Date:09/29/2024 Address:[address] [place] [address], [facility], [id number] Subjective: * Chief Complaints: * 1 . 6 mths. * HPI: C ardiology: 69 year old female presents with c/o Blood Pressure Elevated?Pt here for 6 mo f/u on hypertension, states she is doing well and does not have any concerns.? c/o Hyperlipidemia P t is fasting today. [...] F ather: , pneumonia. M other: , [place] at age 84. S iblings: alive. Sudha [...] , Taking Atorvastatin Calcium 20 MG Tablet TAKE 1 TABLET BY MOUTH ONCE DAILY , Medication List reviewed and reconciled with the patient * Allergies: N .K.D.A. Objective: * Vitals: W t:179, Temp:97.7, BP:122/70, HR:104, Nurse:dov, Ht: 68, BMI:27.21. * Examination: C ardiology: General Appearance: p leasant, NAD. H EENT: u nremarkable. H eart sounds: R RR, normal S1, S2. L ungs: c lear, no rales or wheezes.?Extremities: n o leg edema. Assessment: * Assessment: 1. E ssential hypertension - I10 (Primary) 2 . P ure hypercholesterolemia - E78.00 3 . C olon cancer screening - Z12.11 4 . O steoporosis screening - Z13.820 Plan: * Treatment: 2. P ure hypercholesterolemia Refill Atorvastatin Calcium Tablet, 20 MG, 1 tablet, Orally, once daily, 90 days, 90, Refills 1.? 3. C olon cancer screening I maging: colonoscopy 4.?Osteoporosis screening?Imaging: DEXA Hip and Spine (Performed Date - 10/09/2024)?osteopenia of L- spine, new diagnosis* Value Reference Range D exa results osteopenia of L-spine, new diagnosis * Gi Seaman 09/29/2024 09:4 9:18 AM >faxed to [facility] Suze Mederos 09/29/2024 1:09:42 PM > 10/09/24 at 9:00WhVielka heredia 10/11/2024 12:10:16 PM > , See phone encounter * Procedure Codes: G 2211 Complex e/m visit add on, 3074F SYST BP LT 130 MM HG, 3078F DIAST BP < 80 MM HG * Follow Up: 6 Months * Images: Billing Information: * Visit Code: 51103 Office Visit, Est Pt., Level 4. * Procedure Codes: G2211 Complex e/m visit add on. 3074F SYST BP LT 130 MM HG. 3078F DIAST BP < 80 MM HG. * Electronic signature of Denise Floyd MD on 06/29/2025 at 10:35 AM EST Sign off status: Pending * Provider: Leila Floyd M.D. Date: 0 09/29/2024 Generated for Lorenzo sevilla/Stefanie/Frantzitting on: 1 08/30/2024 10:35 AM EST History and Physical Notes * HPI (History of Present Illness) Category Sub-Category Detail Notes Category Not es Cardiology Blood Pressure Elevated Pt here for 6 mo f/u on hypertension, states she is doing well and does not have any concerns Hyperlipidemia Pt is fasting today Examination Category Sub-Category Detail Notes Category Not es Cardiology Lungs: clear, no rales or wheezes HEENT: unremarkable Heart sounds: RRR, normal S1, S2 Extremities: no leg edema General Appearance: pleasant, NAD
--- OUTSIDE RECORDS SUMMARY | 2025-04-01 04:00 | XMS_ITS ---
Author Organization [facility] Address [address] [place] [phone] Care Team Providers Care Flour Mixer Helper Name Role Phone Yasmani Gilbert Unavailable [phone] Zak Floyd Unavailable [phone] Allergies No Known Allergies Results Component Value Reference Range Notes Urinalysis - Inhouse Reviewed date:04/01/2025 10:48:28 AM Interpretation: Performing Lab: Notes/Report: Color/Clarity yellow/clear Leuk Neg Nitrite Neg Urobili 3.2 Protein Neg pH 7.0 Blood Neg Sp. Gr. 1.020 Ketone Neg Bili Neg Gluc Neg P-Comprehensive Metabolic Pa prieto (CMP) Reviewed date:04/02/2025 04:22:40 PM Interpretation:Normal Performing Lab: Notes/Report: Test performed by [facility] [address] [place] [address] , [address], [place] [address] Lee Bryson MD, Sales Representative [employer] CLIA: [id number] Sodium 140 135-145 mmol/L Potassium 4.9 3.5-5.3 mmol/L Chloride 105 97-108 mmol/L CO2 26 20-32 mmol/L Glucose 96 65-99 mg/dL BUN 20 8-23 mg/dL Creatinine 0.67 0.50-1.00 mg/dL Calcium 9.7 8.6-10.4 mg/dL eGFR by Creatinine 93 >59 mL/min/1.73m2 Protein 7.0 6.0-8.3 g/dL Albumin 4.1 3.5-5.3 g/dL Alkaline Phosphatase 93 35-121 IU/L ALT (SGPT) 18 <5-47 IU/L AST (SGOT) 16 <5-40 IU/L Bilirubin, Total 0.4 <0.2-1.2 mg/dL A/G Ratio 1.4 1.1-2.5 P-Lipid Panel Reviewed date:04/02/2025 04:22:40 PM Interpretation:Normal Performing Lab: Notes/Report: Test performed by [facility], [address] , [place] [address] Lee Bryson MD, Sales Representative [employer] CLIA: [id number] Cholesterol 167 <200 mg/dL Triglycerides 75 <150 mg/dL HDL Cholesterol 58 >39 mg/dL Cholesterol / HDL Ratio 2.88 0.00-4.44 Ratio Non-HDL Cholesterol 109 <130 mg/dL LDL Cholesterol (Calculation) 94 <130 mg/dL LDL Cholesterol Levels* Less than 100 mg/dL Optimal 100 to 129 mg/dL Near Optimal/ Above Optimal 130 to 159 mg/dL Borderline High 160 to 189 mg/dL High 190 mg/dL and above Very High * Categories as recommended by the 2004 ATPIII guidelines LDL/HDL Ratio 1.6 <3.3 Ratio LDL Cholesterol Patient History Test Date: 04/02/2024 LDL Results: 88 Units: mg/dL % Change: - Test Date: 04/01/2025 LDL Results: 94 Units: mg/dL % Change: +6% P-TSH reflex to FT4 Reviewed date:04/02/2025 04:22:40 PM Interpretation:Normal Performing Lab: Notes/Report: Test performed by [facility] [address] [place] [address] , [address], [place] [address] eLe Bryson MD, Sales Representative [employer] CLIA: [id number] TSH reflex to FT4 3.73 0.43-5.25 mU/L P-Microalbumin/Creatinine, R andom Urine Sample Reviewed date:04/02/2025 04:22:40 PM Interpretation:Normal Performing Lab: Notes/Report: Test performed by [facility] [address] [place] [address] , [address], [place] [address] Lee Bryson MD, Sales Representative [employer] CLIA: [id number] Albumin/Creatinine Ratio, Urine 9 0-30 ug/mg Microalbumin, Urine, Random 1.0 Creatinine, Urine 115.1 REASON FOR VISIT 6 month ckup Medications Medication SIG (Take, Route, Frequency, Duration) Notes Start Date End Date Status Irbesartan-hydroCHLOROthiaz hayde 300-12.5 MG 1 tablet Orally Once a day; Duration: 90 days Active Atorvastatin Calcium 20 MG 1 tablet Oral ly once daily; Duration: 90 days Active Immunizations Vaccine Route Administration Date Status Comme nts Fluzone High Dose (65yr and older) IM Intramuscular 04/01/2025 Administered Vital Signs Blood pressure systolic 118 mm Hg 04/01/20 25 Blood pressure diastolic 68 mm Hg 025 Heart Rate 72 /min 04/01/2025 Height 68 in 04/01/2025 Weight 167.8 lbs 04/01/2025 BMI 25.51 kg/m2 04/01/2025 Encounters Encounter Location Date Provider Diagnosis [facility] [address] [place], [place] [phone] 04/01/2025 Zak Floyd Essential hypertensi on I10 ; Pure hypercholesterolemia E78.00 ; Encounter for immunization Z23 and BMI 25.0-25.9,adult Z68.25 Assessments Encounter Date Diagnosis (ICD Code) Assessment Notes Treatment Notes Treatment Clinical Notes Section Notes 04/01/2025 Essential hypertensi on (ICD-10 - I10) 04/01/2025 Pure hypercholesterolemia (ICD-10 - E78.00) 04/01/2025 Encounter for immunization (ICD-10 - Z23) 04/01/2025 BMI 25.0-25.9,adult (ICD-10 - Z68.25) Plan Of Treatment Medication Medication Name Sig Start Date Stop Date Notes Irbesartan-hydroCHLOROthiazi de 300-12.5 MG 1 tablet Orally Once a day; Duration: 90 days Atorvastatin Calcium 20 MG 1 tablet Oral ly once daily; Duration: 90 days Next Appt Details Follow Up: 6 Months, Reason: Provider Name:Zak Corral , 09/29/2025 09:00:00 AM, [address] [facility] [address] [facility], [address], [place], [phone], Progress Notes * Evelyn TORRESDOB:1955 (70 yo F)Acc No.[id number]:04/01/2025 Progress Notes Patient: Evelyn HARPER Provider: Leila Floyd M.D. :1955 A ge:69 Y S ex:Female Date:04/01/2025 Address:[address], [place], [id number] Subjective: * Chief Complaints: * 1 . 6 month ckup. * HPI: C ardiology: 69 year old female presents with c/o Blood Pressure Elevated?Pt here for 6 month checkup on Hypertension. Pt states she has no concerns at this time. c/o Hyperlipidemia P t is fasting today. * Medical History: H ypertension, Hyperlipidemia. * Surgical History: T ubal Ligation , Bladder Sling/ PHAN, BSO 2005, Colonoscopy 2009. * Hospitalization/Major Diagno stic Procedure: H ysterectomy 2005. * Family History: F ather: , pneumonia. M other: , [place] at age 85. S iblings: alive. Sudha buckner: alive. 1 brother(s) , 4 sister(s) - healthy. 1 son(s) , 1 daughter(s) - healthy. .? * Social History: C URRENT TOBACCO USE: No S moking Status: Patient does NOT smoke. C affeine: no. Home smoke detector use: yes. * Medications: T aking Irbesartan-hydroCHLOROthiazide 300-12.5 MG Tablet 1 tablet Orally Once a day , Taking Atorvastatin Calcium 20 MG Tablet 1 tablet Orally once daily , Medication List reviewed and reconciled with the patient * Allergies: N .K.D.A. Objective: * Vitals: W t: 167.8, Temp: 97.8, BP: 118/68, HR: 72, Nurse: LAXMI, Ht: 68, BMI:25.51. * Examination: C ardiology: General Appearance: p leasant, NAD. H EENT: u nremarkable. H eart sounds: R RR, normal S1, S2. L ungs: c lear, no rales or wheezes.?Extremities: n o leg edema. Assessment: * Assessment: 1. E ssential hypertension - I10 (Primary) 2 . P ure hypercholesterolemia - E78.00 3 . E ncounter for immunization - Z23 4 . B MA 25.0-25.9,adult - Z68.25 Plan: * Treatment: Value Reference Range A /G Ratio 1.4 1.1-2.5 - * A lbumin 4.1 3.5-5.3 - g/dL * A lkaline Phosphatase 93 35-121 - IU/L * A LT (SGPT) 18 <5-47 - IU/L * A ST (SGOT) 16 <5-40 - IU/L * B ilirubin, Total 0.4 <0.2-1.2 - mg/dL * B UN 20 8-23 - mg/dL * C alcium 9.7 8.6-10.4 - mg/dL * C hloride 105 97-108 - mmol/L * C O2 26 20-32 - mmol/L * C reatinine 0.67 0.50-1.00 - mg/dL * G lucose 96 65-99 - mg/dL * P otassium 4.9 3.5-5.3 - mmol/L * S odium 140 135-145 - mmol/L * P rotein 7.0 6.0-8.3 - g/dL * e GFR by Creatinine 93 >59 - mL/min/1.73m2 * Najma Blunt 04/02/2025 04:22: 25 PM EDT > Pt notified ?LAB: P-Microalbumin/Creatinine, Random Urine Sample (Collection Date & Time - 04/01/2025 09:10 AM)?Normal* Value Reference Range A lbumin/Creatinine Ratio, Urine 9 0-30 - ug /mg * C reatinine, Urine 115.1 - mg/dL * M icroalbumin, Urine, Random 1.0 - mg/dL * Najma Blunt 04/02/2025 04:22: 25 PM EDT > Pt notified ?LAB: Urinalysis - Inhouse (Collection Date & Time - 04/01/2025)* Value Reference Range C olor/Clarity yellow/clear * L euk Neg * N itrite Neg * U robili 3.2 * P rotein Neg * p H 7.0 * B lood Neg * S p. Gr. 1.020 * K etone Neg * B audie Neg * G campbell Neg * Najma Blunt 04/01/2025 10:39: 29 AM EDT > Provider reviewed results while patient in office. 2.?Pure hypercholesterolemia? Refill Atorvastatin Calcium Tablet, 20 MG, 1 tablet, Orally, once daily, 90 days, 90, Refills 1. ?LAB: P-Comprehensive Metabolic Panel (CMP) (Collection Date & Time - 04/01/2025 09:10 AM)?Normal* Value Reference Range A /G Ratio 1.4 1.1-2.5 - * A lbumin 4.1 3.5-5.3 - g/dL * A lkaline Phosphatase 93 35-121 - IU/L * A LT (SGPT) 18 <5-47 - IU/L * A ST (SGOT) 16 <5-40 - IU/L * B ilirubin, Total 0.4 <0.2-1.2 - mg/dL * B UN 20 8-23 - mg/dL * C alcium 9.7 8.6-10.4 - mg/dL * C hloride 105 97-108 - mmol/L * C O2 26 20-32 - mmol/L * C reatinine 0.67 0.50-1.00 - mg/dL * G lucose 96 65-99 - mg/dL * P otassium 4.9 3.5-5.3 - mmol/L * S odium 140 135-145 - mmol/L * P rotein 7.0 6.0-8.3 - g/dL * e GFR by Creatinine 93 >59 - mL/min/1.73m2 * Najma Blunt 04/02/2025 04:22: 25 PM EDT > Pt notified ?LAB: P-Lipid Panel (Collection Date & Time - 04/01/2025 09:10 AM)?Normal* Value Reference Range C holesterol / HDL Ratio 2.88 0.00-4.44 - Ratio * C holesterol 167 <200 - mg/dL * H DL Cholesterol 58 >39 - mg/dL * L DL Cholesterol (Calculation) 94 <130 - mg/d L * L DL/HDL Ratio 1.6 <3.3 - Ratio * N on-HDL Cholesterol 109 <130 - mg/dL * T riglycerides 75 <150 - mg/dL * Najma Blunt 04/02/2025 04:22: 25 PM EDT > Pt notified ?LAB: P-TSH reflex to FT4 (Collection Date & Time - 04/01/2025 09:10 AM)? Normal* Value Reference Range T SH reflex to FT4 3.73 0.43-5.25 - mU/L * Najma Blunt 04/02/2025 04:22: 25 PM EDT > Pt notified * Immunizations: Fluzone High Dose (65yr and older) : 0.5 mL (Route: Intramuscular) given by Najma Blunt on Right Deltoid (Encounter for immunization) * Procedure Codes: G 2211 Complex e/[place], [address] Urinalysis, no micro, 1036F TOBACCO NON- USER, G8420 BMI<30 AND >=22 CALC & DOCU, G8950 PREHTN/HTN BP DOC INDCD F/U DOC, 3074F SYST BP LT 130 MM HG, 3078F DIAST BP < 80 MM HG * Follow Up: 6 Months * Images: Billing Information: * Visit Code: 37935 Office Visit, Est Pt., Level 4. * Procedure Codes: G2211 Complex e/[place]. [address] Urinalysis, no micro. 1036F TOBACCO NON-USER. G8420 BMI<30 AND >=22 CALC & DOCU. G8950 PREHTN/HTN BP DOC INDCD F/U DOC. 3074F SYST BP LT 130 MM HG. 3078F DIAST BP < 80 MM HG. * Electronic signature of Denise Floyd MD on 06/29/2025 at 10:36 AM EST Sign off status: Pending * Provider: Leila Floyd M.D. Date: 0 04/01/2025 Generated for Lorenzo sevilla/Stefanie/Frantzitting on: 1 08/30/2024 10:36 AM EST History and Physical Notes * HPI (History of Present Illness) Category Sub-Category Detail Notes Category Not es Cardiology Blood Pressure Elevated Pt here for 6 month checkup on Hypertension. Pt states she has no concerns at this time Hyperlipidemia Pt is fasting today Examination Category Sub-Category Detail Notes Category Not es Cardiology Lungs: clear, no rales or wheezes HEENT: unremarkable Heart sounds: RRR, normal S1, S2 Extremities: no leg edema General Appearance: pleasant, NAD
--- NOTE | 2025-06-29 10:30 | MM_ITS ---
PROCEDURE INFORMATION: Exam: MG Bilateral Screening 3D Mammography Exam date and time: 06/29/2025 10:19 AM Age: 70 years old Clinical indication: Screening examination TECHNIQUE: Imaging protocol: Bilateral Screening tomosynthesis and 2D mammography including computer-aided detection (CAD) when performed. COMPARISON: MG MM DIG SCREENING MAMM BI W/CAD 06/15/2024 8:01 AM FINDINGS: MAMMOGRAPHY: Breast composition: There are scattered areas of fibroglandular density. Mass: 0.8 cm partially visualized mass in the posterior deep right central breast slightly medial to the nipple line Architectural distortion: None. Calcifications: No suspicious calcifications. Asymmetric density: None. Skin thickening: None. Axillary adenopathy: None. IMPRESSION: Patient to be recalled for spot compression views of the right breast in the CC and MLO projections, a full 90 degree lateral view, and right breast ultrasound for further evaluation of a right breast mass. ASSESSMENT: BI-RADS Category 0: Incomplete- Need Additional Imaging Evaluation
--- OUTSIDE RECORDS SUMMARY | 2025-06-29 10:35 | XMS_ITS | Patient Health Record ---
Author Organization [facility] Address [address] [place] [id number] Care Team Providers Care Editorial Project Manager Name Role Phone Yasmani Gilbert Unavailable [phone] Zak Floyd Unavailable [phone] Allergies No Known Allergies Results Component Value Reference Range Notes P-Comprehensive Metabolic Pa prieto (CMP) Reviewed date:04/02/2025 04:22:40 PM Interpretation:Normal Performing Lab: Notes/Report: Test performed by [facility], [address] , [address], [place] [address] Lee Bryson MD, Cad Detailer CLIA: [id number] Sodium 140 135-145 mmol/L Potassium 4.9 3.5-5.3 [...] 0.4 <0.2-1.2 mg/dL A/G Ratio 1.4 1.1-2.5 Urinalysis - Inhouse Reviewed date:04/01/2025 10:48:28 AM Interpretation: Performing Lab: Notes/Report: Color/Clarity yellow/clear Leuk Neg Nitrite Neg Urobili 3.2 Protein Neg pH 7.0 Blood Neg Sp. Gr. 1.020 Ketone Neg Bili Neg Gluc Neg P-Microalbumin/Creatinine, R andom Urine Sample Reviewed date:04/02/2025 04:22:40 PM Interpretation:Normal Performing Lab: Notes/Report: Test performed by [facility] [address] , [address], [place] [address] Lee Bryson MD, Cad Detailer CLIA: [id number] Albumin/Creatinine Ratio, Urine 9 0-30 ug/mg Microalbumin, Urine, Random 1.0 Creatinine, Urine 115.1 P-TSH reflex to FT4 Reviewed date:04/02/2025 04:22:40 PM Interpretation:Normal Performing Lab: Notes/Report: Test performed by [facility] [address] , [place] [address] Lee Bryson MD, Cad Detailer CLIA: [id number] TSH reflex to FT4 3.73 0.43-5.25 mU/L P-Lipid Panel Reviewed date:04/02/2025 04:22:40 PM Interpretation:Normal Performing Lab: Notes/Report: Test performed by [facility] [address] [place] [address] , [address], [place] [address] Lee Bryson MD, Cad Detailer CLIA: [id number] Cholesterol 167 <200 mg/dL Triglycerides 75 <150 [...] Results: 88 Units: mg/dL % Change: - ------- Test Date: 04/01/2025 LDL Results: 94 Units: mg/dL % Change: +6% [facility] Reviewed date:10/11/2024 12:10:24 PM Interpretation:osteopenia of L-spine, new diagnosis Performing Lab: Notes/Report: osteopenia of L-spine, new diagnosis Dexa results osteopenia of L-spine, new diagnosis Reason For Referral No Information Medications Medication SIG (Take, Route, Frequency, Duration) Notes Start Date End Date Status Atorvastatin Calcium 20 MG 1 tablet Oral ly Once a day; Duration: 90 days Active Irbesartan-hydroCHLOROthiaz hayde 300-12.5 MG 1 tablet Orally Once a day; Duration: 90 days Active Immunizations Vaccine Route Administration Date Status Comme nts COVID 19 Moderna Unknown 11/02/2020 Administered COVID 19 Moderna Unknown 11/30/2020 Administered Fluzone High Dose (65yr and older) IM Intramuscular 04/07/2021 Administered Fluzone High Dose (65yr and older) IM Intramuscular 04/10/2022 Administered Fluzone High Dose (65yr and older) IM Intramuscular 04/09/2023 Administered Fluzone High Dose (65yr and older) IM Intramuscular 04/02/2024 Administered Fluzone High Dose (65yr and older) IM Intramuscular 04/01/2025 Administered Fluzone Quad-Medicare (6months&older) Unknown 05/16/2020 Administered Hepatitis A (adult) Unknown 06/20/2018 Administered Hepatitis A (adult) Unknown 12/25/2018 Administered PNEUMOVAX 23 VACCINE IM Intramuscular 04/07/2021 Administe red Prevnar (PCV20) IM Intramuscular 04/10/2022 Administered Tetanus Tdap-Adacel (over 7yrs) NS Nasal 09/28/2015 Administered Problems Problem Type SNOMED Code ICD Code Onset Dates Problem Status W/U Status Risk Notes Problem Essential hypertension (48381169) Essential hypertension (I10) Active confirmed Problem Pure hypercholesterolemia (597320725) Pure hypercholesterolemia (E78.00) Active confirmed Problem Osteopenia of dee mbar spine (M85.88) Active confirmed Vital Signs Heart Rate 72 /min 04/01/2025 Blood pressure diastolic 68 mm Hg 04/01/2025 Height 68 in 04/01/2025 Blood pressure systolic 118 mm Hg 04/01/2025 Weight 167.8 lbs 04/01/2025 BMI 25.51 kg/m2 04/01/2025 Encounters Encounter Location Date Provider Diagnosis [facility] [address] [place], [place] [id number] 10/11/2024 Zak [place] [facility] [address] [place], [place] [id number] 04/12/2025 Yasmani Gilbert Colon cancer screeni ng Z12.11 [facility] [address] [place], [place] [phone] 09/29/2024 Zak [place] Essential hypertensi on I10 ; Pure hypercholesterolemia E78.00 ; Colon cancer screening Z12.11 and Osteoporosis screening Z13.820 [facility] [address] [facility] [address] [place], [place] [id number] 04/01/2025 Zak [place] Essential hypertensi on I10 ; Pure hypercholesterolemia E78.00 ; Encounter for immunization Z23 and BMI 25.0-25.9,adult Z68.25 Assessments Encounter Date Diagnosis (ICD Code) Assessment Notes Treatment Notes Treatment Clinical Notes Section Notes 09/29/2024 Essential hypertensi on (ICD-10 - I10) 09/29/2024 Pure hypercholesterolemia (ICD-10 - E78.00) 04/01/2025 Essential hypertensi on (ICD-10 - I10) 04/01/2025 Pure hypercholesterolemia (ICD-10 - E78.00) 04/12/2025 Colon cancer screeni ng (ICD-10 - Z12.11) 04/01/2025 Encounter for immunization (ICD-10 - Z23) 09/29/2024 Colon cancer screeni ng (ICD-10 - Z12.11) 09/29/2024 Osteoporosis screeni ng (ICD-10 - Z13.820) 04/01/2025 BMI 25.0-25.9,adult (ICD-10 - Z68.25) Plan Of Treatment Pending Test Test Name Order Date colonoscopy 09/29/2024 Cologuard 04/12/2025 Next Appt Details Provider Name:Zak Corral ry, 09/29/2025 09:00:00 AM, [address], [address], [place], [place], [id number], Insurance Providers Payer Name Payer Address Payer Phone Subscriber Number Group Number Insured Name Patient Relationship to Insured Coverage Start Date Coverage End Date MEDICARE PART B [address] [address] [place] [address] [id number] Evelyn Torres Self - patient is the insured [employer] MED[employer]ARE SUPPLEMENT [address] [address] [place], [place] [phone] [id number] Evelyn Torres Self - patient is the insured Medications Administered Medication Instructions Date of Administration Dosage Notes Dexamethasone 12/05/2021 1 mL Medical (General) History Medical History History ICD Code Hypertension Hyperlipidemia Surgical History Surgery Date(Month/Year) Tubal Ligation Bladder Sling/ PHAN, BSO 2005 Colonoscopy 2009 Hospitalization History Reason Date(Month/Year) Hysterectomy 2005
== END 2025-06-29 23:59 | disposition home or self-care (01) ==
LOC: RAD 10:08
PROVIDERS: PCP Family Medicine; Visit Provider Nurse Practitioner Obstetrics & Gynecology
DX: Z12.31 Encounter for screening mammogram for malignant neoplasm of breast (principal); N63.10 Unspecified lump in the right breast, unspecified quadrant
CPT/HCPCS: 77063; 77067